=== PATIENT | male | born 1995 | race Caucasian/White ===

== ENCOUNTER 2024-10-26 12:16 | Emergency (ER) | payer OTHER, SELFPAY ==
[2024-10-26 12:16] VITALS: BP 163/99; PULSE 110; RESP 18; TEMP 36.2; O2SAT 97
--- NOTE | 2024-10-26 12:29 | ED.WOUNDLAC ---
HPI - Wound/Laceration General Chief Complaint: Wound/Laceration Stated Complaint: laceration Time Seen by Provider: 10/26/24 12:26 History of Present Illness HPI narrative: Pt was skinning a [place] he trapped and cut his left hand with a knife. Pt not sure of last tetanus. Related Data Home Medications ?Medication ?Instructions ?Recorded ?Confirmed ?Last Taken ?Type No Home Medications 10/26/24 10/26/24 Unknown History Allergies Allergy/AdvReac Type Severity Reaction Status Date / Time No Known Allergies Allergy Unknown Verified 10/26/24 12:23 Review of Systems Review of Systems: All systems reviewed & are unremarkable except as noted in HPI and below Exam Const: General: healthy appearing and no acute distress Nutritional Appearance: well nourished Orientation/consciousness: patient oriented x3 Limitations: no limitations Skin: General skin exam: normal color Rashes: no rashes Wounds: wounds noted (3 cm laceration left hand above left thumb near web space gull ROM thumb) Neuro: General: patient oriented x3, moves all extremities and no focal motor deficits Speech: normal speech Extrem: General: no clubbing, cyanosis or edema Psych: Mental Status: mental status grossly normal Affect: normal affect Attitude: cooperative Course Vital Signs Vital signs: Vital Signs Temperature 97.1 F L 10/26/24 12:16 Pulse Rate 110 H 10/26/24 12:16 Respiratory Rate 18 10/26/24 12:16 Blood Pressure 163/99 H 10/26/24 12:16 Pulse Oximetry 97 10/26/24 12:16 Oxygen Delivery Room Air 10/26/24 12:16 Temperature 97.1 F L 10/26/24 13:06 Pulse Rate 110 H 10/26/24 13:06 Respiratory Rate 18 10/26/24 13:06 Blood Pressure 146/92 H 10/26/24 13:06 Pulse Oximetry 97 10/26/24 13:06 Oxygen Delivery Room Air 10/26/24 13:06 Procedures Laceration Laceration 1: Side (If applicable): left Size (cm): 3 Description: linear Depth: simple, single layer Local Anesthetic: lidocaine 1% Amount of anesthesia used (mL): 5 ====== Skin Level ====== Skin layer closed with: nylon Size (cm): 4-0 Number of sutures: 6 Technique: simple, interrupted ====== Subcutaneous Layer ====== ====== Muscle Layer ====== ====== Tendon Layer ====== Discharge Plan Discharge Clinical Impression: Laceration Patient Disposition: Home, Self-Care Condition: Improved Instructions: Antibiotic Form, Care For Your Stitches (ED), Laceration (ED) Additional Instructions: suture removal 10-12 days Patient Language: Macanese Prescriptions: No Action No Home Medications Follow-up/Referrals: UNKNOWN,DOCTOR [Primary Care Provider] -
[2024-10-26 12:31] VITALS: BP 146/92
[2024-10-26] MEDS: TETANUS,DIPHTHERIA,AC PERTUSSIS ADULT 0.5 ML (ADACEL) IM (12:34)
[2024-10-26 13:06] VITALS: BP 146/92; PULSE 110; RESP 18; TEMP 36.2; O2SAT 97
== END 2024-10-26 13:06 | disposition home or self-care (01) ==
LOC: CHSED 13:03
PROVIDERS: Emergency Provider Emergency Medicine
DX: S61.412A Laceration without foreign body of left hand, initial encounter (principal); Z23 Encounter for immunization; W26.0XXA Contact with knife, initial encounter
CPT/HCPCS: 12002; 90471; 90715; 99282